=== PATIENT | male | born 1975 | race Two or more races ===

== ENCOUNTER 2016-11-08 22:10 | Inpatient (IN) | payer MEDICAID ==
[2016-11-08] MEDS ORDERED: HYDROmorphone 1 mg/mL 1mL Syr IM STA (22:45)
--- NOTE | 2016-11-08 22:54 | ED Physician Chart ---
Chief Complaint/HPI - Patient Information Date Seen:: 11/08/16 Time Seen:: 22:39 Chief Complaint:: wrist and face pain History of Present Illness:: THIS IS A 41 YO MALE WHO FELL FROM A PLATFORM WHILE WORKING AND INJURED HIS LEFT WRIST AND LEFT HEAD. HE DENIES LOC. HE DENIES ALL OTHER INJURIES. HE DENIES DIABETES, HYPERTENSION AND HEART DISEASE. Historian:: Patient Review:: Nurse's Note Reviewed Review of Systems - Review of Systems General/Constitutional: No fever, No chills, No weight loss, No weakness, No diaphoresis, No edema, No loss of appetite Skin: No skin lesions, No rash, No bruising Head: Headache, No headache, No light-headedness Eyes: No loss of vision, No pain, No diplopia ENT: No earache, No nasal drainage, No sore throat, No tinnitus Neck: No neck pain, No swelling, No thyromegaly, No stiffness, No mass noted Cardio Vascular: No chest pain, No palpitations, No PND, No orthopnea, No edema Pulmonary: No SOB, No cough, No sputum, No wheezing GI: No nausea, No vomiting, No diarrhea, No pain, No melena, No hematochezia, No constipation, No hematemesis G/U: No dysuria, No frequency, No hematuria Musculoskeletal: No bone or joint pain (LEFT WRIST PAIN AND SWELLING.), No back pain, No muscle pain Endocrine: No polyuria, No polydipsia Psychiatric: No prior psych history, No depression, No anxiety, No suicidal ideation Hematopoietic: No bruising, No lymphadenopathy Allergic/Immuno: No urticaria, No angioedema Neurological: No syncope, No focal symptoms, No weakness, No paresthesia, No headache, No seizure, No dizziness, No confusion, No vertigo Past Medical History - Past Medical History Obtainable: Yes Past Medical History: No significant medical hx Family History: None Social History: Non Smoker, No Alcohol, No Drug Use Surgical History: None Psychiatricy History: None Family Medical History - Family Member Mother History Unknown: Yes Father History Unknown: Yes Physical Exam - Physical Examination General/Constitutional: Awake, Well-developed, well-nourished, Alert, No distress, GCS 15, Non-toxic appearing, Ambulatory Head: Atraumatic (THERE IS SWELLING AND A LARGE ABRASION OF THE LEFT FOREHEAD AND PERIORBITAL AREA OF THE LEFT Face.) Eyes: Lids, conjuctiva normal, PERRL, EOMI Skin: Nl inspection, No rash, No skin lesions, No ecchymosis, Well hydrated, No lymphadenopathy ENMT: External ears, nose nl, Nasal exam nl, Lips, teeth, gums nl Neck: Nontender, Full ROM w/o pain, No JVD, No nuchal rigidity, No bruit, No mass, No stridor Respiratory: Nl effort/Exclusion, Clear to Auscultation, No Wheeze/Rhonchi/Rales Cardio Vascular: RRR, No murmur, gallop, rubs, NL S1 S2 GI: No tenderness/rebounding/guarding, No organomegaly, No hernia, Normal BS's, Nondistended, No mass/bruits, No McBurney tenderness : No CVA tenderness Extremities: No tenderness or effusion (there is deformity of the left wrist and forearm area with limited rom because pain.), Full ROM, normal strength in all extremities, No edema, Normal digits & nails Neuro/Psych: Alert/oriented, DTR's symmetric, Normal sensory exam, Normal motor strength, Judgement/insight normal, Mood normal, Normal gait, No focal deficits Misc: normal gait, Normal back, No paraspinal tenderness Labs/Radiology/EKG Results - Radiology Results Results: X-RAY = L WRIST FRACTURE CT SCAN OF THE HEAD = NEG FOR FRACTURE. ED Septic Shock - . Is Septic Shock (SBP<90, OR Lactate>4 mmol\L) present?: No Reassessment (Disposition) - Reassessment Reassessment Condition:: Unchanged - Diagnosis Diagnosis:: FRACTURE OF THE LEFT WRIST HEAD TRAUMAA - Patient Disposition Discharge/Transfer:: Acute Care w/in this hosp Admitting Medical Physician:: Jeff Buenrostro Condition at Disposition:: Stable, Improved ED Discharge Plan - Patient Disposition Admit/Discharge/Transfer: Acute Care w/in this hosp Condition at Disposition: Improved
[2016-11-08] MEDS ORDERED: HYDROmorphone 2 mg/mL 1mL Vial ONE (22:57)
[2016-11-08] MEDS ORDERED: HYDROmorphone 1 mg/mL 1mL Syr ONE (23:03)
[2016-11-09 01:12] LABS: HEMATOCRIT 44.1 % (39.0-49.0); HEMOGLOBIN 14.9 gm/dL (13.2-17.3); MEAN CELL VOLUME 84.1 fl (80-99); MEAN CORPUSCULAR HEMOGLOBIN 28.4 pg (26.0-30.0); MEAN CORPUSCULAR HGB CONC 33.8 pg (28.0-36.0); MEAN PLATELET VOLUME 8.6 fl; PLATELET COUNT 207 Th/cmm (150-400); RED BLOOD COUNT 5.24 Mil/cmm (4.30-5.70); RED CELL DISTRIBUTION WIDTH 12.3 % (11.5-20.0); WHITE BLOOD COUNT 12.5 Th/cmm (4.8-10.8)
[2016-11-09 01:16] LABS: PROTHROMBIN TIME (TEST) 9.9 SECONDS (9.5-11.5)
[2016-11-09 01:19] LABS: ALB/GLOB RATIO 1.4 (1.0-1.8); ALKALINE PHOSPHATASE 63 U/L (34-104); ANION GAP 10.6 (7.0-16.0); BILIRUBIN,TOTAL 0.6 mg/dL (0.3-1.0); BUN - UREA NITROGEN 18 mg/dL (7-25); BUN/CREATININE RATIO 22.5; CALCIUM SERUM 9.3 mg/dL (8.6-10.3); CARBON DIOXIDE 26.3 mEq/L (21.0-31.0); CHLORIDE 103 mEq/L (98-107); CREATININE - SERUM 0.8 mg/dL (0.7-1.3); GLUCOSE 125 mg/dL (70-105); POTASSIUM SERUM 3.9 mEq/L (3.5-5.1); SGOT 25 U/L (13-39); SGPT/ALT 42 U/L (7-52); SODIUM SERUM 136 mEq/L (136-145)
[2016-11-09 01:37] LABS: BAND NEUTROPHILE 6 % (0-10); NEUTROPHILS 82 % (40-80); PLATELET ESTIMATE ADEQUATE (NORMAL); PLATELET MORPHOLOGY NORMAL (NORMAL); TOTAL CELLS COUNTED 100
[2016-11-09] MEDS: Morphine Sulfate 2 mg/mL 1mL Syr IVP PRN ×4 (02:45→16:00)
[2016-11-09 03:43] LABS: URINE BACTERIA FEW /hpf (NONE SEEN); URINE BILIRUBIN NEGATIVE (NEGATIVE); URINE BLOOD NEGATIVE (NEGATIVE); URINE COLOR YELLOW; URINE EPITHELIAL CELLS RARE /lpf (FEW); URINE GLUCOSE (UA) NEGATIVE (NEGATIVE); URINE KETONE NEGATIVE (NEGATIVE); URINE PROTEIN NEGATIVE (NEGATIVE); URINE RBC NONE SEEN /hpf (0-5); URINE UROBILINOGEN 0.2 E.U./dL (0.2 - 1.0); URINE WBC 0-2 /hpf (0-5)
[2016-11-09 04:00] VITALS: BP 127/90
[2016-11-09 07:32] LABS: % BASOPHILS 0.3 % (0.0-2.0); % EOSINOPHILS 0.2 % (0.0-5.0); % LYMPHOCYTES 10.3 % (20.0-50.0); % MONOCYTES 9.6 % (2.0-10.0); % NEUTROPHILS 79.6 % (40.0-80.0); HEMATOCRIT 42.8 % (39.0-49.0); HEMOGLOBIN 14.3 gm/dL (13.2-17.3); MEAN CORPUSCULAR HEMOGLOBIN 28.1 pg (26.0-30.0); MEAN CORPUSCULAR HGB CONC 33.5 pg (28.0-36.0); NEUTROPHILE ABSOLUTE 8.1 Th/cmm (1.8-8.0); PLATELET COUNT 214 Th/cmm (150-400); RED BLOOD COUNT 5.09 Mil/cmm (4.30-5.70); RED CELL DISTRIBUTION WIDTH 12.2 % (11.5-20.0); WHITE BLOOD COUNT 10.1 Th/cmm (4.8-10.8)
[2016-11-09 07:48] LABS: ANION GAP 9.2 (7.0-16.0); BUN - UREA NITROGEN 17 mg/dL (7-25); BUN/CREATININE RATIO 21.3; CARBON DIOXIDE 27.4 mEq/L (21.0-31.0); CHLORIDE 104 mEq/L (98-107); CREATININE - SERUM 0.8 mg/dL (0.7-1.3); GLUCOSE 111 mg/dL (70-105); POTASSIUM SERUM 3.6 mEq/L (3.5-5.1); SODIUM SERUM 137 mEq/L (136-145)
--- NOTE | 2016-11-09 10:18 | Diagnostic Imaging Report ---
INDICATION: Shortness of breath and chest pain FINDINGS: Heart size is enlarged..Aorta tortuous.. There are no infiltrates or effusions. There are no bony thoracic abnormalities IMPRESSION: Cardiomegaly .. No acute cardiopulmonary pathology.
--- NOTE | 2016-11-09 10:24 | Diagnostic Imaging Report ---
History: Trauma Findings: Comminuted fracture distal radius. Dorsal angulation at the fracture site. Distal ulna is intact. Impression: Comminuted fracture distal radius with dorsal angulation.
--- NOTE | 2016-11-09 11:50 | History & Physical ---
CHIEF COMPLAINT: Status post fall with left wrist, forearm and facial pain. HISTORY OF PRESENT ILLNESS: This is a 41-year-old male who sustained a fall yesterday while at work landing on his left side with a fracture noted to the left wrist and sustained some abrasions to the forehead. The patient was seen and evaluated here at [facility]. A CT of the head showed no acute process, no intracranial hemorrhage, left wrist however, did reveal a fracture per ER physician. The patient denies any previous medical history. Currently on no medications. LABORATORY DATA: His initial lab work while in the ER, white count was noted to be 12.5, hemoglobin 14.4, hematocrit 44.1, platelets 207. PT/INR was 9.9 and 1.0. Sodium 136, potassium 3.9, chloride 103, bicarbonate 26, BUN 18, creatinine 0.8, glucose 125. AST and ALT 25 and 42, alkaline phosphatase 63, albumin 4.4. UA was essentially negative. RPR was nonreactive. The patient was initially given medication in the ER for pain control and was subsequently admitted for ortho to evaluate. REVIEW OF SYSTEMS: Essentially negative with the exception of the left wrist pain and swelling and had abrasion. PAST MEDICAL HISTORY: None. PAST SURGICAL HISTORY: None. FAMILY HISTORY: Noncontributory. SOCIAL HISTORY: Denies smoking, drinking or IV drug use. PHYSICAL EXAMINATION: VITAL SIGNS: Temperature 97.8, pulse 75, respiration 19, blood pressure 142/82. GENERAL: This is a 41-year-old male, well developed, well nourished, appears stated age. HEENT: Normocephalic, atraumatic with swelling and large abrasion to the left forehead and periorbital area of the left face. NECK: Supple. Good range of motion. RESPIRATORY: Clear to auscultation. No rales, rhonchi or wheezing. CARDIOVASCULAR: Heart regular rate and rhythm. No murmurs, rubs or clicks. ABDOMEN: Soft, nontender, nondistended. Bowel sounds are active in all 4 quadrants. No rebound tenderness, rigidity, no guarding. EXTREMITIES: Deformity noted to left first and forearm with decreased range of motion. NEUROLOGIC: Cranial nerves 2-12 grossly intact. No focal deficits noted. ASSESSMENT: 1. Status post fall. 2. Left wrist and forearm pain with possible left wrist fracture. 3. Had abrasion and contusion. PLAN: We will admit the patient for pain control. Ortho consult for this morning. We will put patient on a regular diet. We will give morphine sulfate every 4 hours as needed for pain. JOB# [id number]
--- NOTE | 2016-11-09 14:41 | Admit Criteria Form ---
Admit Criteria Forms - Admit Criteria Diagnosis: MUSCULOSKELETAL DISEASE [facility] Clinical Indications for Admission to Inpatient Care (Place 'X' for any and all applicable criteria): Hospital admission is needed for appropriate care of the patient because of ANY ONE of the following: [ X]I. Fracture, dislocation, or other musculoskeletal injury requiring inpatient care(medical) as indicated by ANY ONE of the following(4)(5)(6)(7) [ ]a) Vertebral fracture requiring observation for instability or neurologic compromise (8) [ ]b) Compartment syndrome (proven or cannot be ruled out during observation level of care) (9) [ ]c) Limb-threatening injury [ ]d) Major injury requiring inpatient stabilization such as traction initiation or external fixation before internal fixation or closure of complex or open fracture [X ]e) Major injury requiring inpatient treatment after emergency or observation level care (as appropriate) [ ]f) Severe pain requiring acute inpatient management [ ]II. Newly diagnosed or suspected bone, joint, or orthopedic device infection (e.g., osteomyelitis, septic arthritis) needing ANY ONE of the following(1)(2)(3) [ ]a) IV antibiotics that cannot be initiated in other than inpatient setting (e.g., patient too unstable or home infusion not available) [ ]b) Device removal or replacement [ ]c) Bone or soft tissue debridement [ ]d) Joint drainage (drain placement or repetitive aspirations) [ ]III. Severe rheumatologic disease (e.g., systemic lupus erythematosus, rheumatoid arthritis) with complications or comorbidities (Also use Optimal Recovery Care Criteria or General Recovery Criteria as appropriate on the basis of predominant condition), including ANY ONE of the following(10 )(11)(12)(13) [ ]a) Severe infection (e.g., AUTOMOTIVE [employer]IC infection, sepsis) (14) [ ]b) Respiratory complications, including ANY ONE of the following: [ ]i) Pleural effusion with respiratory compromise [ ]ii) Pulmonary hypertension with congestive failure [ ]iii) Respiratory failure [ ]iv) Pulmonary hemorrhage (15) [ ]c) Hematologic disease, including ANY ONE of the following: [ ]i) Coagulopathy with bleeding [ ]ii) Thrombosis with hypercoagulable state [ ]iii) Thrombotic thrombocytopenic purpura [ ]d) Cerebritis with seizures, psychosis, or other severe abnormalities [ ]e) Vertebral destruction with monitoring needed for cervical myelopathy& possible respiratory compromise [ ]f) Exacerbation that requires inpatient treatment (e.g., intravenous immunosuppression) (16) [ ]g) Acute renal failure [ ]IV. Severe vasculitis with complications or comorbidities (Also use Optimal Recovery Care Criteria or General Recovery Criteria as appropriate on the basis of predominant condition), including ANY ONE of the following(11)(12)(17)(18)(19)(20) [ ]a) [employer]OM[employer] vasculitis with seizures, psychosis, or other severe abnormalities (22) [ ]b) Renal failure (16) [ ]c) Pulmonary hemorrhage (15) [ ]d) Cerebral infarction [ ]e) Gastrointestinal ischemia [ ]f) Gangrene or threatened amputation [ ]g) Exacerbation that requires inpatient treatment (e.g., intravenous immunosuppression) (19)(21) [ ]V. Severe myopathy as indicated by ANY ONE of the following (28)(29) [ ]a) New onset of airway compromise or inability to swallow [ ]b) Respiratory deterioration with observation needed for impending respiratory failure [ ]c) Exacerbation that requires inpatient treatment (e.g., intravenous immunosuppression) [ ]. Severe gout (crystal arthropathy) as indicated by ANY ONE of the following (23)(24) [ ]a) Severe pain requiring acute inpatient management [ ]b) Exacerbation that requires inpatient treatment (e.g., intravenous treatment) [ ]VII.Rhabdomyolysis and ANY ONE of the following (25)(26)(27) [ ]a) Acute renal failure [ ]b) Need for intravenous hydration after emergency or observation level care (as appropriate) [ ]c) Inability to maintain oral hydration [ ]d) Change in mental status [ ]e) Electrolyte abnormality that remains after emergency or observation level care (as appropriate) [ ]VIII Post amputation complication, as indicated by ANY ONE of the following [ ]a) Infection [ ]b) Dehiscence [ ]c) Myodesis failure [ ]IX. Severe pain requiring acute inpatient management as indicated by ALL of the following (30)(31)(32) [ ]a) Continuous or frequent (e.g., every 2 to 4 hrs) parenteral analgesics required [A] [ ]b) Rapid improvement expected from treatment or acute intervention ( e.g., surgery, anesthesia procedure[B] [ ]X. Musculoskeletal Disease and ALL of the following: [ ]a) Symptom or finding for which emergency and observation care have failed or are not considered appropriate (Use General Criteria: Observation Care as appropriate) [ ]b) Presence of ANY ONE of the following [ ]i) A General Admission Criteria [ ]ii) A Pediatric General Admission Criteria The original [facility] content created by [facility] has been revised. The portions of the content which have been revised are identified through the use of italic text or in bold, and [facility] has neither reviewed nor approved the modified material. All other unmodified content is copyright [facility]. Please see references footnoted in the original [facility] edition 2016 Admit Criteria Met?: Yes
[2016-11-09] MEDS ORDERED: Morphine Sulfate 2 mg/mL 1mL Syr IVP ONE (16:22)
[2016-11-09] MEDS ORDERED: Hydrocodone/APAP 5mg/325mg Tab PO PRN (17:40)
[2016-11-09] MEDS: Hydrocodone/APAP 10 mg/325 mg Tab PO PRN ×2 (18:12→22:05)
[2016-11-09] MEDS ORDERED: Morphine Sulfate 2 mg/mL 1mL Syr IVP PRN (18:14)
[2016-11-10] MEDS: Hydrocodone/APAP 10 mg/325 mg Tab PO PRN (05:26)
[2016-11-10] MEDS: D5-0.45NS 1,000 ML IV SCH (11:52)
[2016-11-10 12:20] LABS: % BASOPHILS 0.1 % (0.0-2.0); % EOSINOPHILS 0.2 % (0.0-5.0); % LYMPHOCYTES 12.4 % (20.0-50.0); % MONOCYTES 5.1 % (2.0-10.0); % NEUTROPHILS 82.2 % (40.0-80.0); HEMATOCRIT 44.1 % (39.0-49.0); HEMOGLOBIN 14.7 gm/dL (13.2-17.3); MEAN CELL VOLUME 83.9 fl (80-99); MEAN CORPUSCULAR HGB CONC 33.3 pg (28.0-36.0); MEAN PLATELET VOLUME 7.5 fl; NEUTROPHILE ABSOLUTE 7.7 Th/cmm (1.8-8.0); PLATELET COUNT 229 Th/cmm (150-400); RED BLOOD COUNT 5.25 Mil/cmm (4.30-5.70); RED CELL DISTRIBUTION WIDTH 12.5 % (11.5-20.0); WHITE BLOOD COUNT 9.4 Th/cmm (4.8-10.8)
[2016-11-10 12:34] LABS: ALB/GLOB RATIO 1.2 (1.0-1.8); ALKALINE PHOSPHATASE 58 U/L (34-104); ANION GAP 7.1 (7.0-16.0); BILIRUBIN,TOTAL 0.8 mg/dL (0.3-1.0); BUN - UREA NITROGEN 19 mg/dL (7-25); BUN/CREATININE RATIO 21.1; CALCIUM SERUM 9.3 mg/dL (8.6-10.3); CARBON DIOXIDE 27.8 mEq/L (21.0-31.0); CHLORIDE 104 mEq/L (98-107); CREATININE - SERUM 0.9 mg/dL (0.7-1.3); GLUCOSE 128 mg/dL (70-105); POTASSIUM SERUM 3.9 mEq/L (3.5-5.1); SGOT 18 U/L (13-39); SGPT/ALT 33 U/L (7-52); SODIUM SERUM 135 mEq/L (136-145)
--- NOTE | 2016-11-11 06:49 | Consultation ---
HISTORY OF PRESENT ILLNESS: This 41-year-old male had a fall. It seems like an accidental fall. No loss of consciousness. Abrasion on the forehead, injury to the left forearm with fracture of the distal radius. Seen by Orthopedics. The patient was planned for discharge, but then noted to have nausea and vomiting. The patient is planned for an MRI. The patient says there is not much dizziness. Some headache. More actually scalp pain than headache. The patient has nausea and vomiting 1 or 2 times. Feeling better at the moment. PAST MEDICAL HISTORY: Normal with no other major medical problems. SOCIAL HISTORY: The patient does not smoke, drink or drugs. PAST SURGICAL HISTORY: None. MEDICATIONS: As per reconciliation. REVIEW OF SYSTEMS: Twelve point negative except for above. PHYSICAL EXAMINATION: VITAL SIGNS: Temperature 98.2, blood pressure 140/84 and pulse is around about 72. NECK: Supple. No bruits. HEAD: The patient has abrasion on the forehead. HEART: Normal heart sounds. LUNGS: Clear. ABDOMEN: Soft. NEUROLOGIC: The patient is awake, alert and answers questions appropriately. Speech is okay. The patient's family is by the bedside. CRANIAL NERVES: Pupils react to light. Full eye movement. No nystagmus. No facial weakness. MOTOR: Normal. INVESTIGATION: He had a CT scan done, which is reported to be negative. IMPRESSION: 1. Fall. 2. Head injury with abrasion to the scalp. 3. Nausea and vomiting. 4. Left wrist fracture. MANAGEMENT: The patient is planning for MRI. JOB# [id number]
[2016-11-11] MEDS: D5-0.45NS 1,000 ML IV SCH (08:55)
--- NOTE | 2016-11-11 09:43 | Diagnostic Imaging Report ---
Left wrist (3 views), seen through cast The exam demonstrates mildly displaced comminuted fracture of the distal radius. Fracture extends to the distal articular surface of the radius. IMPRESSION: 1. Mildly displaced comminuted distal radial fracture
--- NOTE | 2016-11-11 11:47 | Diagnostic Imaging Report ---
Skull series (Limited, Hill' view) HISTORY: Pre-MRI metallic screening No radiopaque foreign bodies identified. IMPRESSION: No radiopaque foreign body identified
--- NOTE | 2016-11-11 14:45 | Diagnostic Imaging Report ---
MRI of the brain without intravenous contrast HISTORY: Headache, trauma Multiple MRI sequences were obtained the axial, coronal, and sagittal planes. There is a normal ventricular system size. No focal supratentorial lesions. No mass effect or shift of midline structures. There is normal johnson-white matter distribution. The cerebellum appears normal. No focal lesions. The brainstem appears normal. The seventh/eighth nerve complexes are seen bilaterally and appear normal. No extra-axial masses or abnormal fluid collections. Diffusion images are unremarkable with no evidence of acute focal process or event. The exam of the sella turcica and demonstrates a relatively conspicuous pituitary gland. The significance should be correlated clinically. There is normal aeration of the paranasal sinuses. IMPRESSION: 1. No intracerebral abnormalities 2. Somewhat inconspicuous pituitary gland. The significance should be correlated clinically.
--- NOTE | 2016-11-14 13:41 | Diagnostic Imaging Report ---
INDICATION: Altered level of consciousness. Technique: Serial axial images were performed from the skull base to the vertex using 5 mm slice thickness and interval. CTDI is 34.7mGy. [id number] FINDINGS: Ventricular size is normal. No areas of hemorrhage or edema in the brain or brainstem. No extra axial fluid collections. No bony abnormalities. IMPRESSION: No acute intracranial pathology. Left frontal scalp swelling.
--- NOTE | 2016-11-14 23:50 | Discharge Summary ---
PRELIMINARY DIAGNOSES: 1. Status post fall. 2. Left wrist and forearm pain with possible left wrist fracture. 3. Head abrasion and contusion. DISCHARGE DIAGNOSES: 1. Fracture to the left distal radius, comminuted, closed. 2. Status post fall. 3. Headache. 4. Contusion to the head. BRIEF HISTORY OF PRESENT ILLNESS: This is a 41-year-old male, who sustained a fall while at work, landing on his left side, which he sustained a fracture to the wrist and abrasion to the forehead. The patient was seen and evaluated at [facility] ER. CT of the head showed no acute process, no intracranial hemorrhage; however, the left wrist did reveal a fracture per ER physician. The patient denies any previous medical history, currently on no medications. His initial lab work while in the ER, his white count was noted to be 12.5, hemoglobin 14.4, hematocrit 44.1, platelets 207. PT/INR was 9.9 and 1.0. Sodium was 136, potassium 3.9, chloride 103, bicarbonate 26, BUN 18, creatinine 0.8, glucose 125. AST 25, ALT 42, alkaline phosphatase 63, albumin 4.4. His UA was negative and RPR was negative. The patient was subsequently admitted to the hospital for further evaluation and treatment. HOSPITAL COURSE: The patient was seen and evaluated by Dr. Franks, who diagnosed him with a fracture to the left distal radius. The patient was kept in a splint and was told to follow up with him in 1 week for surgery. The patient was subsequently discharged in stable condition, was to follow up with Dr. Franks in 1 week. The patient was given a course of pain medications as needed for pain, however, he was given also prescription for ibuprofen 800 twice daily. [facility]# [id number]
== END 2016-11-11 17:12 | disposition home or self-care (01) | DRG 342 ==
LOC: ER 22:10 → MSI 11-09 00:17 → TELE 11-10 10:30 → MSI 11-10 10:30
PROVIDERS: ADMIT Family Medicine; ATTEND Family Medicine
DX: S52.502A Unspecified fracture of the lower end of left radius, initial encounter for closed fracture (principal); R51 Headache; S00.81XA Abrasion of other part of head, initial encounter; S00.83XA Contusion of other part of head, initial encounter; R11.2 Nausea with vomiting, unspecified; W19.XXXA Unspecified fall, initial encounter; Y93.89 Activity, other specified; Y92.89 Other specified places as the place of occurrence of the external cause; Y99.8 Other external cause status
CPT/HCPCS: 36415-UA; 70250-TC; 70450-TC; 71010-TC; 73090-TC-LT; 73110-TC-LT; 80048-TC; 80053-TC; 81001-TC; 85007-TC; 85025-TC; 85027-TC; 85610-TC; 85730-TC; 86592-TC; 96374; J0696; J1170; J2270; Q0162; Z7610-TC